=== PATIENT | male | born 1945 | race Caucasian/White ===

== ENCOUNTER 2018-01-03 11:00 | Inpatient (IN) | payer OTHER ==
[~2018-01-03] VITALS: Ht 167.6 cm; Wt 81.6 kg
[2018-01-11] MEDS ORDERED: GABAPENTIN800 MG PO (08:43)
[2018-01-11] MEDS ORDERED: DOCUSATE SODIU100 MG PO (08:43)
[2018-01-11] MEDS ORDERED: CLONAZEPAM1 MG PO (08:44)
[2018-01-11] MEDS ORDERED: PERCOCET 5-3251 EACH PO (08:44)
[2018-01-11] MEDS ORDERED: AMOX-CLAV 875-1 EACH PO (08:44)
== END 2018-01-11 16:18 | DRG 460 ==
LOC: PED 01-10 05:50 → O/R 01-10 05:50 → SURH 01-10 11:00 → PED 01-10 17:59
PROVIDERS: Orthopaedic Surgery Orthopaedic Surgery of the Spine
PROC: 0ST40ZZ Resection of Lumbosacral Disc, Open Approach (ICD-10-PCS; 2018-01-10)
PROC: 07DS3ZZ Extraction of Vertebral Bone Marrow, Percutaneous Approach (ICD-10-PCS; 2018-01-10)
PROC: 00NY0ZZ Release Lumbar Spinal Cord, Open Approach (ICD-10-PCS; principal; 2018-01-10 14:45)
PROC: 0SG30AJ Fusion of Lumbosacral Joint with Interbody Fusion Device, Posterior Approach, Anterior Column, Open Approach (ICD-10-PCS; 2018-01-10 14:45)
DX: M43.17 Spondylolisthesis, lumbosacral region (principal); M48.07 Spinal stenosis, lumbosacral region; M47.817 Spondylosis without myelopathy or radiculopathy, lumbosacral region; I10 Essential (primary) hypertension